=== PATIENT | male | born 1970 | race Caucasian/White ===

== ENCOUNTER 2018-12-25 09:43 | Emergency (ER) | payer OTHER ==
[2018-12-25] MEDS: KETOROLAC 15 MG INJ IV (11:05)
[2018-12-25] MEDS: SOD CHLORIDE 0.9% 1,000 ML IV (11:05)
[2018-12-25] MEDS: DICYCLOMINE 20 MG INJ IM (11:11)
== END 2018-12-25 11:52 | disposition home or self-care (01) ==
LOC: E/R 09:43
DX: R19.7 Diarrhea, unspecified (principal)
CPT/HCPCS: 96372; 96374; 99284-25